=== PATIENT | female | born 1945 | race Two or more races ===

== ENCOUNTER 2016-11-30 14:06 | Inpatient (IN) | payer MEDICAID ==
[~2016-11-30] VITALS: Ht 160 cm; Wt 84.0 kg
[~2016-11-30 14:06] MED LIST: AZIT1POW12 PO
[2016-11-30 15:04] LABS: Urine Bilirubin Negative (Negative); Urine Blood Negative /uL (Negative); Urine Color Yellow (Yellow); Urine Glucose Normal (Normal); Urine Ketone Negative (Negative); Urine Mucus FEW (None Seen); Urine Nitrite Negative (Negative); Urine RBC <1 /hpf (0 - 4); Urine Squamous Epithelial Cell FEW /hpf (<5); Urine Urobilinogen Normal (Negative)
[2016-11-30 15:10] LABS: Basophils # (auto) 0 uL; Basophils % (auto) 0.2 % (0.0-2.0); Eosinophils # (auto) 0.2 uL; Eosinophils % (auto) 2.5 % (0.0-7.0); Hematocrit 45.8 % (36.0-46.0); Hemoglobin 15.7 g/dL (12.2-16.2); Lymphocytes # (auto) 2.3 uL; Mean Corpuscular Hemoglobin 31.4 pg (28.0-32.0); Mean Corpuscular Hgb Conc. 34.2 g/dL (32.0-36.0); Mean Corpuscular Volume 91.8 fL (80.0-100.0); Mean Platelet Volume 11.3 fL (7.4-10.4); Monocytes # (auto) 0.5 uL; Monocytes % (auto) 6.5 % (0.0-12.0); Neutrophils # (auto) 4.7 uL; Neutrophils % (auto) 60.8 % (37.0-80.0); Platelet Count (auto) 216 10^3/uL (140-450); Red Cell Distribution Width 12.9 % (11.6-16.0); White Blood Cell 7.7 10^3/uL (4.4-10.8)
[2016-11-30 15:22] LABS: INR 1.12 (0.9-1.15); Partial Thromboplastin Time 25.7 sec (22.64-33.71); Prothrombin Time 11.5 sec (9.37-12.3)
[2016-11-30] MEDS ORDERED: SODIUM CHLORIDE 0.9% 500 ML IVB ONE (15:22)
[2016-11-30 15:35] LABS: Albumin 3.6 g/dL (3.4-5.0); Alkaline Phosphatase 117 U/L (45-117); Anion Gap 10 (5-15); Aspartate Aminotransferase 24 U/L (15-37); BUN/Creatinine Ratio 17.1; Bilirubin, Total 0.6 mg/dL (0.2-1.0); Blood Urea Nitrogen 13 mg/dL (7-18); Calcium 8.4 mg/dL (8.5-10.1); Carbon Dioxide 26 mmol/L (21-32); Chloride 106 mmol/L (98-107); GFR African American 97 mL/min; GFR Non-African American 80 mL/min; Glucose 135 mg/dL (74-106); Potassium 3.5 mmol/L (3.5-5.1); Sodium 142 mmol/L (136-145); Total Protein 7.9 g/dL (6.4-8.2)
[2016-11-30] MEDS ORDERED: cefTRIAXone 1GM/50ML D5W 50 ML IV ONE (16:30)
[2016-11-30] MEDS ORDERED: LEVOFLOXACIN 500MG 100 ML IV ONE (18:15)
[2016-11-30] MEDS ORDERED: MORPHINE SULF INJ 2 MG/ML SYRINGE 1ML IV PRN ×2 (18:15)
[2016-11-30] MEDS ORDERED: LORazepam 2MG/ML-1ML VIAL IV ONE (18:15)
[2016-11-30] MEDS ORDERED: NITROGLYCERIN 0.4 MG SL TAB SL PRN (18:15)
[2016-11-30] MEDS ORDERED: ONDANSETRON HCL 4 MG/2 ML VIAL IV PRN (18:15)
[2016-11-30] MEDS ORDERED: HYDROcodone-ACET 5/325MG TAB PO PRN (18:15)
[2016-11-30] MEDS: PANTOPRAZOLE 40 MG TAB PO SCH (18:43)
[2016-11-30] MEDS ORDERED: IOHEXOL 350 MG/ML 100ML IJ ONE (18:48)
[2016-11-30 20:30] VITALS: BP 118/66
[2016-11-30 21:30] VITALS: BP 118/66
[2016-11-30] MEDS: MECLIZINE HCL 25 MG TAB PO SCH (21:35)
[2016-12-01 05:09] VITALS: BP 112/56
[2016-12-01] MEDS: MECLIZINE HCL 25 MG TAB PO SCH ×3 (05:31→21:58)
[2016-12-01 09:05] VITALS: BP 103/58
[2016-12-01] MEDS: LEVOFLOXACIN 500MG 100 ML IV SCH (10:59)
[2016-12-01] MEDS: PANTOPRAZOLE 40 MG TAB PO SCH (10:59)
[2016-12-01 13:00] VITALS: BP 97/62
[2016-12-01 17:00] VITALS: BP 128/71
[2016-12-01 20:05] VITALS: BP 121/61
[2016-12-01 21:30] VITALS: BP 121/61
[2016-12-02] VITALS (7 sets, daily range): BP systolic 98–102; BP diastolic 58–61
[2016-12-02] MEDS: MECLIZINE HCL 25 MG TAB PO SCH ×4 (05:54→23:05)
[2016-12-02 07:22] LABS: BUN/Creatinine Ratio 20.9; Calcium 8.6 mg/dL (8.5-10.1); Potassium 3.9 mmol/L (3.5-5.1)
[2016-12-02] MEDS ORDERED: GADOPENTETATE DIMEGLUMINE (10MMOL/20 ML) VIAL IV ONE (09:29)
[2016-12-02] MEDS: PANTOPRAZOLE 40 MG TAB PO SCH (10:02)
[2016-12-02] MEDS: LEVOFLOXACIN 500MG 100 ML IV SCH (10:02)
[2016-12-02] MEDS ORDERED: CIPR-217 PO (10:34)
[2016-12-03 04:55] VITALS: BP 108/61
[2016-12-03] MEDS: MECLIZINE HCL 25 MG TAB PO SCH ×2 (06:28→14:00)
[2016-12-03 08:40] VITALS: BP 100/58
[2016-12-03] MEDS: LEVOFLOXACIN 500MG 100 ML IV SCH (09:58)
[2016-12-03] MEDS: PANTOPRAZOLE 40 MG TAB PO SCH (09:59)
[2016-12-03 11:18] VITALS: BP 104/48
== END 2016-12-03 16:15 | disposition home or self-care (01) | DRG 111 ==
LOC: ER 14:06 → TELE 14:07 → TELE-WESTW 20:15
PROVIDERS: ADMIT Internal Medicine; ATTEND Internal Medicine
DX: H83.09 Labyrinthitis, unspecified ear (principal); N30.00 Acute cystitis without hematuria; D32.9 Benign neoplasm of meninges, unspecified; E66.9 Obesity, unspecified; Z68.32 Body mass index [BMI] 32.0-32.9, adult; Z82.49 Family history of ischemic heart disease and other diseases of the circulatory system
CPT/HCPCS: 36415; 70450; 70553; 71020; 71275; 80048; 80053; 81001; 83735; 84484; 85025; 85379; 85610; 85730; 93005; 94761; 96361; 96365; 96367; J0696; J1956

== ENCOUNTER 2018-02-06 16:18 | Emergency (ER) | payer SELFPAY ==
[~2018-02-06] VITALS: Ht 165.1 cm; Wt 81.6 kg
[~2018-02-06 16:18] MED LIST changes: +CIPR-217 PO
[2018-02-06 16:30] VITALS: BP 124/73
[2018-02-06 18:20] LABS: Urine Bacteria FEW /hpf (None Seen); Urine Blood 2+ /uL (Negative); Urine Specific Gravity 1.015 (1.001-1.035); Urine WBC 383 /hpf (0 - 5); Urine WBC Clumps PRESENT /hpf (None Seen)
== END 2018-02-06 18:09 | disposition home or self-care (01) ==
LOC: ER 16:18
DX: N39.0 Urinary tract infection, site not specified (principal)
CPT/HCPCS: 74176; 81001

== ENCOUNTER 2019-10-29 10:04 | Emergency (ER) | payer MEDICAID, OTHER ==
[~2019-10-29] VITALS: Ht 160 cm; Wt 83.5 kg
[~2019-10-29 10:04] MED LIST changes: -CIPR-217 PO; +CIPR500T4 PO; +LEVO-28 PO; +MECL12.554 PO
[2019-10-29 13:02] VITALS: BP 118/73
== END 2019-10-29 14:29 | disposition home or self-care (01) ==
LOC: ER 10:04
DX: J06.9 Acute upper respiratory infection, unspecified (principal); Z90.49 Acquired absence of other specified parts of digestive tract; Z90.710 Acquired absence of both cervix and uterus
CPT/HCPCS: 71046; 93005